=== PATIENT | female | born 2000 | race Two or more races ===

== ENCOUNTER 2023-10-30 01:21 | Emergency (ER) | payer SELFPAY ==
[~2023-10-30] VITALS: Ht 149.9 cm; Wt 100.0 kg
[2023-10-30 04:30] VITALS: BP 111/57; PULSE 77; RESP 18; TEMP 97.9; O2SAT 97
== END 2023-10-30 04:29 | disposition home or self-care (01) ==
LOC: ER 01:21 → EDBD 01:21 → ER 04:29
DX: F10.129 Alcohol abuse with intoxication, unspecified (principal); Y90.9 Presence of alcohol in blood, level not specified